=== PATIENT | female | born 1935 | race Caucasian/White ===

== ENCOUNTER 2017-04-01 11:53 | Outpatient (CLI) | payer MEDICARE ==
--- NOTE | 2017-04-01 16:34 | XRAY Report ---
THREE VIEW LEFT FOOT: 04/01/2017 CLINICAL INDICATION: Pain, edema. FINDINGS: AP, lateral, and oblique views of the left foot demonstrate severe osteoarthritis of the 1 st metatarsophalangeal joint, and mild osteoarthritis of the interphalangeal joints. Small plantar ca lcaneal spur is noted. There is no evidence of acute fracture or dislocation. IMPRESSION: SEVERE OSTEOARTHRITIS OF THE 1ST METATARSOPHALANGEAL JOINT. JOB #: [id number] EXT JOB #:[id number]
== END 2017-04-01 11:54 | disposition home or self-care (01) ==
LOC: DI 11:53
PROVIDERS: ATTEND Podiatrist
DX: M19.072 Primary osteoarthritis, left ankle and foot (principal)

== ENCOUNTER 2017-05-14 13:19 | Outpatient (CLI) | payer MEDICARE ==
--- NOTE | 2017-05-15 13:03 | Mammography Report ---
DIGITAL SCREENING MAMMOGRAM: 05/14/2017 CLINICAL INDICATION: An 81-year-old with history of bilateral breast cancer status post lumpectomies and radiation therapy for screening. COMPARISON: 04/2016, 12/2014, 09/2013, 10/2012, 10/2011, 07/2010, 07/2009 TECHNIQUE: Routine CC and MLO projections were obtained of the breasts as well as bilateral laterall y exaggerated craniocaudal views. FINDINGS: The breasts again demonstrate heterogeneously dense fibroglandular parenchyma bilaterally. Coarse and punctate, typically benign calcifications are present. Postoperative and post-treatment changes are stable. No suspicious masses, clustered microcalcifications, or regions of architectura l distortion are identified. IMPRESSION: BENIGN FINDINGS. RECOMMENDATION: Routine annual screening unless otherwise clinically indicated. BIRADS CATEGORY 2 - BENIGN FINDINGS. STANDARD QUALIFYING STATEMENTS 1. This examination was reviewed with the aid of Computer-Aided Detection (CAD). 2. A negative or benign imaging report should not delay biopsy if clinically suspicious findings are present. Consider surgical consultation if warranted. More than 5% of cancers are not identified by i maging. 3. Dense breasts may obscure an underlying neoplasm. JOB #: [id number] EXT JOB #:[id number]
== END 2017-05-14 13:20 | disposition home or self-care (01) ==
LOC: DI.N 13:19
PROVIDERS: ATTEND Internal Medicine Hematology & Oncology
DX: Z12.31 Encounter for screening mammogram for malignant neoplasm of breast (principal); Z85.3 Personal history of malignant neoplasm of breast
CPT/HCPCS: 77067

== ENCOUNTER 2017-10-13 08:00 | Outpatient (CLI) | payer MEDICARE ==
[2017-10-13 19:05] LABS: BILIRUBIN,URINE NEGATIVE (NEGATIVE); GLUCOSE, URINE (UA) NEGATIVE (NEGATIVE); KETONES,URINE (UA) NEGATIVE (NEGATIVE); LEUKOCYTE ESTERASE, URINE SMALL (NEGATIVE); NITRITE,URINE NEGATIVE (NEGATIVE); OCCULT BLOOD,URINE NEGATIVE (NEGATIVE); PROTEIN,URINE NEGATIVE (NEGATIVE); UROBILINOGEN,URINE 0.2 (NORMAL) E.U./dL (NORMAL)
[2017-10-13 19:13] LABS: BASOPHILS # (AUTO) 0.1 10^3/uL (0.0-0.1); BASOPHILS % (AUTO) 0.6 %; EOSINOPHILS # (AUTO) 0.2 10^3/uL (0.0-0.7); EOSINOPHILS % (AUTO) 1.6 %; HGB - HEMOGLOBIN 13.4 g/dL (12.0-16.0); LYMPHOCYTES % (AUTO) 9.9 %; MEAN CORPUSCULAR HEMOGLOBIN 30.8 pg (27.0-31.0); MEAN CORPUSCULAR HGB CONC 33.7 g/dL (32.0-36.0); MEAN CORPUSCULAR VOLUME 91.3 fL (81.0-99.0); MONOCYTES # (AUTO) 0.9 10^3/uL (0.0-1.0); MONOCYTES % (AUTO) 9.4 %; NEUTROPHILS # (AUTO) 7.7 10^3/uL (1.5-6.6); NEUTROPHILS % (AUTO) 78.5 %; PLT - PLATELET COUNT 325 10^3/uL (130-450); RED BLOOD COUNT 4.35 10^6/uL (4.20-5.40); RED CELL DISTRIBUTION WIDTH 12.8 % (12.0-15.0); WHITE BLOOD COUNT 9.8 x10^3/uL (4.8-10.8)
[2017-10-13 19:14] LABS: CLARITY,URINE CLEAR (CLEAR); EPITHELIAL CELLS,UR FEW Transitional /HPF (<= Few); RBC,URINE 0-5 /HPF (0-5); SQUAMOUS EPITHELIAL CELL,UR FEW Squamous (<= Few)
[2017-10-13 19:15] LABS: BACTERIA,URINE Rare /HPF (None Seen); CASTS, URINE 26-50 Hyaline Casts /LPF
[2017-10-13 19:35] LABS: ALBUMIN 3.7 g/dL (3.2-5.5); ALBUMIN/GLOBULIN RATIO 1.2 (1.0-2.2); ALKALINE PHOSPHATASE 63 IU/L (42-121); ALT ALANINE AMINOTRANSFERASE 25 IU/L (10-60); AST ASPARTATE AMINOTRANSFERASE 22 IU/L (10-42); BILIRUBIN,TOTAL < 0.2 mg/dL (0.2-1.0); BUN - BLOOD UREA NITROGEN 17 mg/dL (6-20); CALCIUM 9.9 mg/dL (8.5-10.3); CARBON DIOXIDE - CO2 25 mmol/L (21-32); CHLORIDE 100 mmol/L (101-111); CREATININE 1.1 mg/dL (0.4-1.0); GFR - MDRD 47 (>89); GLUCOSE 92 mg/dL (70-100); SODIUM 138 mmol/L (135-145); TOTAL PROTEIN 6.7 g/dL (6.7-8.2)
== END 2017-10-13 08:01 | disposition home or self-care (01) ==
LOC: LAB.WCP 08:00
PROVIDERS: ATTEND Family Medicine
DX: R60.9 Edema, unspecified (principal)
CPT/HCPCS: 36415; 80053; 81001; 85025

== ENCOUNTER 2017-12-31 07:15 | Day surgery (SDC) | payer MEDICARE ==
[~2017-12-31 07:15] MED LIST: CYCLOPENTOLATE 1% OPHTH DROPS 2 ML ONE; KETOROLAC 0.45% OPHTH DROPS ONE; PHENYLEPHRINE 2.5% OPHTH 2 ML DROPS ONE; PROPARACAINE 0.5% OPHTH DROPS 15 ML ONE
[2017-12-31] MEDS ORDERED: LACTATED RINGERS 500 ML IV ONE (07:21)
[2017-12-31] MEDS ORDERED: EPINEPHrine 1 MG/ML AMP ONE (07:27)
[2017-12-31] MEDS ORDERED: BRIMONIDINE 0.2% OPHTH DROPS 5 ML ONE (07:27)
[2017-12-31] MEDS ORDERED: TRIAMCIN/MOXIFLOX OPHTHALMIC 0.6 ML VIAL IO ONE (07:27)
[2017-12-31] MEDS ORDERED: TIMOLOL 0.5% OPHTH DROPS ONE (07:28)
[2017-12-31] MEDS ORDERED: BSS/LIDOCAINE/EPINEPHRINE 1 ML SYRINGE ONE (07:28)
[2017-12-31] MEDS ORDERED: PROPARACAINE 0.5% OPHTH DROPS 15 ML RIGHTEYE ONE ×2 (07:40→08:46)
[2017-12-31] MEDS ORDERED: PHENYLEPHRINE 2.5% OPHTH 2 ML DROPS RIGHTEYE ONE (07:40)
[2017-12-31] MEDS ORDERED: CYCLOPENTOLATE 1% OPHTH DROPS 2 ML RIGHTEYE ONE (07:40)
[2017-12-31] MEDS ORDERED: KETOROLAC 0.45% OPHTH DROPS RIGHTEYE ONE (07:40)
[2017-12-31] MEDS ORDERED: MIDAZOLAM 2 MG/2 ML VIAL IVP ONE (08:40)
[2017-12-31] MEDS ORDERED: EPINEPHrine 1 MG/ML AMP IR ONE (08:45)
[2017-12-31] MEDS ORDERED: BRIMONIDINE 0.2% OPHTH DROPS 5 ML OPTH ONE (08:45)
[2017-12-31] MEDS ORDERED: BSS/LIDOCAINE/EPINEPHRINE 1 ML SYRINGE IO ONE (08:46)
[2017-12-31] MEDS ORDERED: TIMOLOL 0.5% OPHTH DROPS OPTH ONE (08:46)
[2017-12-31] MEDS ORDERED: CHONDR SULF/HYALURONATE SYRINGE IO ONE (08:46)
[2017-12-31] MEDS ORDERED: VANCOMYCIN OPHTHALMI 8MG/0.8ML 8 MG/0.8 ML SYRINGE IO ONE (08:47)
[2017-12-31 09:00] VITALS: BP 132/53
== END 2017-12-31 07:16 | disposition home or self-care (01) ==
LOC: SDS 07:15
PROVIDERS: ATTEND Ophthalmology
PROC: 08RJ3JZ Replacement of Right Lens with Synthetic Substitute, Percutaneous Approach (ICD-10-PCS; principal; 2017-12-31 08:30)
DX: H25.811 Combined forms of age-related cataract, right eye (principal); I10 Essential (primary) hypertension
CPT/HCPCS: 66984; A9270; J3490; V2632

== ENCOUNTER 2018-02-25 07:46 | Day surgery (SDC) | payer MEDICARE ==
[~2018-02-25 07:46] MED LIST changes: +BRIMONIDINE 0.2% OPHTH DROPS 5 ML ONE; +BSS/LIDOCAINE/EPINEPHRINE 1 ML SYRINGE ONE; +EPINEPHrine 1 MG/ML AMP ONE; +TIMOLOL 0.5% OPHTH DROPS ONE; +TRIAMCIN/MOXIFLOX OPHTHALMIC 0.6 ML VIAL IO ONE; +VANCOMYCIN OPHTHALMI 8MG/0.8ML 8 MG/0.8 ML SYRINGE IO ONE
[2018-02-25] MEDS ORDERED: LACTATED RINGERS 500 ML IV ONE (07:53)
[2018-02-25] MEDS ORDERED: PHENYLEPHRINE 2.5% OPHTH 2 ML DROPS LEFTEYE ONE (08:08)
[2018-02-25] MEDS ORDERED: PROPARACAINE 0.5% OPHTH DROPS 15 ML LEFTEYE ONE ×2 (08:08→09:04)
[2018-02-25] MEDS ORDERED: CYCLOPENTOLATE 1% OPHTH DROPS 2 ML LEFTEYE ONE (08:08)
[2018-02-25] MEDS ORDERED: KETOROLAC 0.45% OPHTH DROPS LEFTEYE ONE (08:08)
[2018-02-25] MEDS ORDERED: EPINEPHrine 1 MG/ML AMP IR ONE (09:02)
[2018-02-25] MEDS ORDERED: CHONDR SULF/HYALURONATE SYRINGE IO ONE (09:02)
[2018-02-25] MEDS ORDERED: VANCOMYCIN OPHTHALMI 8MG/0.8ML 8 MG/0.8 ML SYRINGE IO ONE ×3 (09:02→09:08)
[2018-02-25] MEDS ORDERED: BRIMONIDINE 0.2% OPHTH DROPS 5 ML OPTH ONE (09:02)
[2018-02-25] MEDS ORDERED: BSS/LIDOCAINE/EPINEPHRINE 1 ML SYRINGE IO ONE (09:03)
[2018-02-25] MEDS ORDERED: TRIAMCIN/MOXIFLOX/VANCO 1 ML VIAL IO ONE (09:03)
[2018-02-25] MEDS ORDERED: TIMOLOL 0.5% OPHTH DROPS OPTH ONE (09:03)
[2018-02-25] MEDS ORDERED: MIDAZOLAM 2 MG/2 ML VIAL IVP ONE (09:50)
[2018-02-25 09:51] VITALS: BP 127/63
--- NOTE | 2018-02-25 11:08 | OPERATIVE REPORT ---
DATE OF SERVICE: 02/25/2018 Physician: Joel oRsas MD PREOPERATIVE DIAGNOSIS: Visually significant cataract, left eye. Cataract surgery was performed on the right eye on 12/31/2017. POSTOPERATIVE DIAGNOSIS: Visually significant cataract, left eye. Cataract surgery was performed on the right eye on 12/31/2017. NAME OF PROCEDURE: Phacoemulsification with posterior chamber intraocular lens implant, left eye. SURGEON: Joel Rosas MD ANESTHESIA: Monitored anesthesia care. COMPLICATIONS: None. OPERATIVE INDICATIONS: This is an 82-year-old woman with progressive vision loss in the left eye due to 2+ nuclear sclerotic, 2 to 3+ cortical and trace posterior subcapsular cataract. Best corrected visual acuity was 20/30 with glare to 20/70 in the left eye. Indications for surgery were overall de crease in vision, difficulty seeing words on the computer screen, difficulty reading; difficulty seei ng words, closed caption or game scores on TV; difficulty seeing street signs and difficulty with gla re or bright lights in any situation. She was consented at length concerning risks and benefits of c ataract surgery, after which she expressed a desire to proceed with surgery. OPERATIVE PROCEDURE: The patient was taken into OR #3 and placed under monitored anesthesia care. A surgical timeout was conducted confirming correct patient, correct procedure, and correct surgical s ite. She was given topical anesthesia, and prepped and draped in the usual sterile fashion. The eye was entered at the 6 and 3 o'clock positions. Intracameral Shugarcaine was injected into the anteri or chamber, followed by Viscoat. A continuous-tear curvilinear capsulorrhexis was performed. Nucleu s was hydrodissected and phacoemulsified. The cortex was evacuated using automated infusion and aspi ration. Provisc was injected in the capsular bag, and a 21.5 diopter intraocular lens was inserted i nto the bag. Approximately 0.8 mL of a mixture of triamcinolone, moxifloxacin, and vancomycin was in jected subconjunctivally in the superior quadrant for infection and inflammation prophylaxis. I and A, was used to evacuate the viscoelastic materials. The eye was inflated to physiologic pressure usi ng a balanced salt solution and found to be watertight. The patient was taken from the operating nicky m in good condition and given postoperative instructions. TD: 02/25/2018 09:38
== END 2018-02-25 07:47 | disposition home or self-care (01) ==
LOC: SDS 07:46
PROVIDERS: ATTEND Ophthalmology
PROC: 08RK3JZ Replacement of Left Lens with Synthetic Substitute, Percutaneous Approach (ICD-10-PCS; principal; 2018-02-25 09:00)
DX: H25.812 Combined forms of age-related cataract, left eye (principal); I10 Essential (primary) hypertension
CPT/HCPCS: 66984; A9270; J3490; V2632

== ENCOUNTER 2018-05-19 11:22 | Outpatient (CLI) | payer MEDICARE ==
--- NOTE | 2018-05-20 10:50 | Mammography Report ---
Reason: SCREENING MAMMO Procedure Date: 05/19/2018 Accession Number: [id number] / [id number] Procedure: EDWAR - Screening Mammo w/Bennett CPT Code: FULL RESULT: EXAM: Screening Mammo w/Bennett DATE: 05/19/2018 12:27 PM CLINICAL HISTORY: Routine screening with personal history of breast cancer TECHNIQUE: Bilateral CC and MLO views were obtained. COMPARISON: 05/14/2017, 05/12/2016, 01/15/2015, 10/24/2013, 11/02/2012, 11/06/2011, 02/03/2011. FINDINGS: The breast tissue is heterogeneously dense. Post therapeutic changes bilaterally are similar to previous. No new suspicious masses, clustered microcalcifications, or regions of architectural distortion are identified. IMPRESSION: Benign findings RECOMMENDATION: Routine annual screening unless otherwise clinically indicated. BIRADS CATEGORY 2: Benign findings STANDARD QUALIFYING STATEMENTS: 1. This examination was not reviewed with the aid of Computer-Aided Detection (CAD). 2. A negative or benign imaging report should not delay biopsy if clinically suspicious findings are present. Consider surgical consultation if warrented. More than 5% of cancers are not identified by imaging. 3. Dense breasts may obscure an underlying neoplasm. 4. This examination was reviewed with the aid of 3D breast imaging (tomosynthesis).
== END 2018-05-19 11:23 | disposition home or self-care (01) ==
LOC: DI 11:22
PROVIDERS: ATTEND Nurse Practitioner
DX: Z12.31 Encounter for screening mammogram for malignant neoplasm of breast (principal); Z85.3 Personal history of malignant neoplasm of breast
CPT/HCPCS: 77063; 77067

== ENCOUNTER 2019-05-24 12:21 | Outpatient (CLI) | payer MEDICARE ==
--- NOTE | 2019-05-24 17:03 | Ultrasound Report ---
Reason: LYPHEDEMA, ADENOCA BREAST Procedure Date: 05/24/2019 Accession Number: [id number] / [id number] Procedure: US - Duplex Ext Veins Left CPT Code: FULL RESULT: EXAM: LEFT LOWER EXTREMITY VENOUS ULTRASOUND EXAM DATE: 05/24/2019 01:28 PM. CLINICAL HISTORY: Breast cancer COMPARISON: None. TECHNIQUE: Real-time sonographic vascular imaging was performed by the ob gyn through the lower extremity utilizing both color-flow and Doppler spectral analysis. Multiple business office representative static images were saved for review. FINDINGS: Common Femoral Vein (CFV): Normal. CFV-GSV Junction: Normal. Profunda Femoral Vein (PFV): Normal. Femoral Vein (FV) Prox: Normal. Femoral Vein (FV) Mid: Normal. Femoral Vein (FV) Dist: Normal. Popliteal Vein: Normal. Posterior Tibial Veins: Normal. Peroneal Veins: Normal. Other: None. IMPRESSION: No evidence for deep venous thrombosis. RADIA
== END 2019-05-24 12:22 | disposition home or self-care (01) ==
LOC: DI 12:21
PROVIDERS: ATTEND Family Medicine
DX: I89.0 Lymphedema, not elsewhere classified (principal); C50.919 Malignant neoplasm of unspecified site of unspecified female breast

== ENCOUNTER 2019-06-02 11:01 | Outpatient (CLI) | payer MEDICARE ==
--- NOTE | 2019-06-03 08:15 | Mammography Report ---
Reason: SCREENING MAMMO Procedure Date: 06/02/2019 Accession Number: [id number] / [id number] Procedure: EDWAR - Screening Mammo w/Bennett CPT Code: Final Report FULL RESULT: EXAM: Screening Mammo w/Bennett DATE: 06/02/2019 12:00 PM CLINICAL HISTORY: Screening encounter. Personal history of breast cancer bilaterally status post lumpectomy bilaterally. TECHNIQUE: (B) - Bilateral CC and MLO views were obtained. COMPARISON: 05/19/2018 through 10/24/2013. PARENCHYMAL PATTERN: (D) - The breast(s) demonstrate(s) heterogeneously dense fibroglandular parenchyma. FINDINGS: Bilateral posttreatment changes are stable, typically benign. There are no suspicious masses, calcifications, or areas of distortion. IMPRESSION: Benign findings. BI-RADS category 2. RECOMMENDATION: (ANNUAL) - Recommend routine annual screening mammography. BI-RADS CATEGORY: (2) - Benign Findings. STANDARD QUALIFYING STATEMENTS: 1. This examination was not reviewed with the aid of Computer-Aided Detection (CAD). 2. A negative or benign imaging report should not preclude biopsy if clinically suspicious findings are present. 3. Dense breasts may obscure an underlying neoplasm. 4. This examination was reviewed with the aid of 3D breast imaging (tomosynthesis).
== END 2019-06-02 11:02 | disposition home or self-care (01) ==
LOC: DI 11:01
PROVIDERS: ATTEND Internal Medicine Hematology & Oncology
DX: Z12.31 Encounter for screening mammogram for malignant neoplasm of breast (principal); Z08 Encounter for follow-up examination after completed treatment for malignant neoplasm; Z85.3 Personal history of malignant neoplasm of breast
CPT/HCPCS: 77063; 77067

== ENCOUNTER 2019-07-29 08:00 | Outpatient (CLI) | payer MEDICARE ==
--- NOTE | 2019-07-29 11:49 | DEXA Report ---
Reason: BONE DISORDER Procedure Date: 07/29/2019 Accession Number: [id number] / [id number] Procedure: DEX - Dexa Spine and/or Hip CPT Code: Final Report FULL RESULT: EXAM: Dexa Spine and/or Hip DATE: 07/29/2019 8:35 AM CLINICAL HISTORY: BONE DISORDER TECHNIQUE: Dual energy x-ray absorptiometry (DXA) was performed on a [employer] System. Regions measured are the AP Spine, femoral neck, and if needed forearm. COMPARISON: 05/12/2016. In accordance with the International Society for Clinical Densitometry (ISCD) guidelines, data from previous exams may be reanalyzed using current recommendations and techniques. This is done to allow a more accurate basis for comparison with the current study. FINDINGS: The data for the lumbar spine is as follows: BMD (g/cm/cm) T-SCORE Z-SCORE REGION L1 0.864 -2.2 -0.1 L2 1.005 -1.6 0.5 L3 1.050 -1.3 0.9 L4 1.044 -1.3 0.8 TOTAL 0.995 -1.5 0.6 NOTE: All evaluable vertebrae are used for classification The data for the hip is as follows: BMD (g/cm/cm) T-SCORE Z-SCORE REGION Neck 0.877 -1.2 1.4 TOTAL 0.903 -0.8 1.6 NOTE: The femoral neck or total proximal femur, whichever is lowest, is used for classification. DXA RESULTS SUMMARY: Spine SCAN DATE AGE BMD CHANGE VS CHANGE VS PREVIOUS PREVIOUS % 07[age]29/2019 [age] 0.995 -0.027 -2.6 05/12/2016 [age] 1.022 * Denotes significant change at the 95% confidence level. Denotes dissimilar scan types or analysis methods. DXA RESULTS SUMMARY: Hip SCAN DATE AGE BMD CHANGE VS CHANGE VS PREVIOUS PREVIOUS % 07[birth year]29[birth year]2019 84.1 0.903 -0.038* -4.0* 05/12/2016 80.8 0.941 * Denotes significant change at the 95% confidence level. Denotes dissimilar scan types or analysis methods. IMPRESSION: THE WHO CLASSIFICATION BASED ON THE INTERNATIONAL REFERENCE STANDARD IS OSTEOPENIA. THE FRACTURE RISK IS INCREASED. Statistically significant interval decrease in bone density in the hip. RECOMMENDATION: Patients with diagnosis of osteoporosis or osteopenia should have regular bone mineral density assessment. For those eligible for Medicare, routine testing is allowed once every 2 years. Testing frequency can be increased for patients who have rapidly progressing disease or for those who are receiving medical therapy to restore bone mass. COMMENT: World Health Organization (WHO) definitions for osteoporosis and osteopenia: NORMAL BMD: T-score at -1.0 or higher, fracture risk is low OSTEOPENIA BMD: T-score between -1.0 and -2.5, fracture risk is increased. OSTEOPOROSIS BMD: T-score at -2.5 or lower, fracture risk is high. National Osteoporosis Foundation recommends: 1. Obtain adequate dietary calcium (at least 1200 mg per day) and vitamin D (400-800 international units per day). 2. Participate, as appropriate, in regular weightbearing and muscle-strengthening exercise. 3. Avoid tobacco use and reduce alcohol and caffeine intake. 4. For more detailed information see the website at www.NOF.org.
== END 2019-07-29 08:01 | disposition home or self-care (01) ==
LOC: DI 08:00
PROVIDERS: ATTEND Family Medicine
DX: M85.89 Other specified disorders of bone density and structure, multiple sites (principal)
CPT/HCPCS: 77080

== ENCOUNTER 2019-09-20 09:11 | Outpatient (CLI) | payer MEDICARE ==
[2019-09-20 12:17] LABS: BASOPHILS % (AUTO) 0.7 %; EOSINOPHILS # (AUTO) 0.1 10^3/uL (0.0-0.7); EOSINOPHILS % (AUTO) 2.1 %; HGB - HEMOGLOBIN 14.6 g/dL (12.0-16.0); LYMPHOCYTES # (AUTO) 1.2 10^3/uL (1.5-3.5); LYMPHOCYTES % (AUTO) 19.3 %; MEAN CORPUSCULAR HEMOGLOBIN 30.7 pg (27.0-31.0); MEAN CORPUSCULAR HGB CONC 32.2 g/dL (32.0-36.0); MEAN CORPUSCULAR VOLUME 95.6 fL (81.0-99.0); MEAN PLATELET VOLUME 10.7 fL (7.9-10.8); MONOCYTES # (AUTO) 0.5 10^3/uL (0.0-1.0); MONOCYTES % (AUTO) 8.9 %; NEUTROPHILS # (AUTO) 4.2 10^3/uL (1.5-6.6); NEUTROPHILS % (AUTO) 68.7 %; PLT - PLATELET COUNT 263 10^3/uL (130-450); RED BLOOD COUNT 4.75 10^6/uL (4.20-5.40); RED CELL DISTRIBUTION WIDTH 12.4 % (12.0-15.0); WHITE BLOOD COUNT 6.1 x10^3/uL (4.8-10.8)
[2019-09-20 12:46] LABS: ALBUMIN/GLOBULIN RATIO 1.4 (1.0-2.2); ALKALINE PHOSPHATASE 54 IU/L (42-121); ALT ALANINE AMINOTRANSFERASE 21 IU/L (10-60); AST ASPARTATE AMINOTRANSFERASE 23 IU/L (10-42); BILIRUBIN,TOTAL 0.7 mg/dL (0.2-1.0); BUN - BLOOD UREA NITROGEN 18 mg/dL (6-20); CALCIUM 9.5 mg/dL (8.5-10.3); CARBON DIOXIDE - CO2 29 mmol/L (21-32); CHLORIDE 105 mmol/L (101-111); CHOL/HDL RATIO 2.2 (<4.4); CHOLESTEROL 169 mg/dL; GFR - MDRD 53 (>89); GLUCOSE 90 mg/dL (70-100); HDL CHOLESTEROL 78 mg/dL; LDL CHOLESTEROL,CALCULATED 74 mg/dL; LDL/HDL RATIO 0.9 (<4.4); SODIUM 141 mmol/L (135-145); TOTAL PROTEIN 6.9 g/dL (6.7-8.2); VLDL CHOLESTEROL 17 mg/dL
== END 2019-09-20 23:59 | disposition home or self-care (01) ==
LOC: LAB.WCP 09:11
PROVIDERS: ATTEND Family Medicine
DX: I10 Essential (primary) hypertension (principal); E78.5 Hyperlipidemia, unspecified
CPT/HCPCS: 36415; 80053; 80061; 83721; 85025

== ENCOUNTER 2020-07-12 10:56 | Outpatient (CLI) | payer MEDICARE ==
--- NOTE | 2020-07-13 05:37 | Mammography Report ---
BILATERAL DIGITAL SCREENING MAMMOGRAM 3D/2D: 07/12/2020 CLINICAL: Routine screening. Personal history of bilateral breast cancer. Comparison is made to exams dated: 06/02/2019 mammogram, 05/19/2018 mammogram, 05/14/2017 mammogram, 05/12/2016 mammogram, 01/15/2015 mammogram, and 10/24/2013 mammogram - [facility]. T here are scattered fibroglandular elements in both breasts. There are benign vascular calcifications in both breasts. There also are benign post operative findi ngs in both breasts. No significant masses, calcifications, or other findings are seen in either breast. There has been no significant interval change. IMPRESSION: BENIGN There is no mammographic evidence of malignancy. A 1 year screening mammogram is recommended. This exam was interpreted at Station ID: [id number]. NOTE: For mammograms, a report in lay terms will be sent to the patient. Approximately 15% of breast malignancies will not be visualized mammographically. In the management of a palpable breast mass, a negative mammogram must not discourage biopsy of a clinically suspicious lesion. Electronically Signed By: Sade la/yogi:07/12/2020 11:35:05 ACR BI-RADS Category 2: Benign Finding(s) 3342F PARENCHYMAL PATTERN: (A) - The breast(s) demonstrate(s) scattered fibroglandular densities. BI-RADS CATEGORY: (2) - 2 RECOMMENDATION: (ANNUAL) - Recommend routine annual screening mammography. [id number] 1 year screening LATERALITY: (B)
== END 2020-07-12 10:57 | disposition home or self-care (01) ==
LOC: DI.N 10:56
PROVIDERS: ATTEND Internal Medicine Hematology & Oncology
DX: Z12.31 Encounter for screening mammogram for malignant neoplasm of breast (principal); Z85.3 Personal history of malignant neoplasm of breast
CPT/HCPCS: 77067

== ENCOUNTER 2021-03-19 10:37 | Outpatient (CLI) | payer MEDICARE ==
--- NOTE | 2021-03-19 13:54 | XRAY Report ---
PROCEDURE: Shoulder 2 View RT INDICATIONS: R SHOULDER PX TECHNIQUE: 2 views of the shoulder were acquired. COMPARISON: None. FINDINGS: Bones: No fractures or dislocations. No suspicious bony lesions. Visualized ribs appear intact. Mi ld acromioclavicular joint and glenohumeral joint osteoarthritis. Soft tissues: No suspicious soft tissue calcifications. 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
== END 2021-03-19 10:38 | disposition home or self-care (01) ==
LOC: DI.N 10:37
PROVIDERS: ATTEND Family Medicine
DX: M19.011 Primary osteoarthritis, right shoulder (principal); R06.9 Unspecified abnormalities of breathing; E78.5 Hyperlipidemia, unspecified
CPT/HCPCS: 36415; 80048; 80061; 81001; 83721; 85025; 85027

== ENCOUNTER 2021-03-19 10:45 | Outpatient (CLI) | payer MEDICARE ==
[2021-03-19 17:59] LABS: HCT - HEMATOCRIT 47.7 % (37.0-47.0); HGB - HEMOGLOBIN 15.1 g/dL (12.0-16.0); MEAN CORPUSCULAR HEMOGLOBIN 30.6 pg (27.0-31.0); MEAN CORPUSCULAR HGB CONC 31.7 g/dL (32.0-36.0); MEAN CORPUSCULAR VOLUME 96.8 fL (81.0-99.0); MEAN PLATELET VOLUME 10.6 fL (7.9-10.8); RED BLOOD COUNT 4.93 10^6/uL (4.20-5.40); RED CELL DISTRIBUTION WIDTH 12.7 % (12.0-15.0); WHITE BLOOD COUNT 7.2 x10^3/uL (4.8-10.8)
[2021-03-19 18:00] LABS: BILIRUBIN,URINE NEGATIVE (NEGATIVE); GLUCOSE, URINE (UA) NEGATIVE (NEGATIVE); KETONES,URINE (UA) TRACE mg/dL (NEGATIVE); LEUKOCYTE ESTERASE, URINE NEGATIVE (NEGATIVE); NITRITE,URINE NEGATIVE (NEGATIVE); OCCULT BLOOD,URINE NEGATIVE (NEGATIVE); PROTEIN,URINE NEGATIVE (NEGATIVE); UROBILINOGEN,URINE 0.2 (NORMAL) E.U./dL (NORMAL)
[2021-03-19 18:01] LABS: BACTERIA,URINE Rare /HPF (None Seen); CLARITY,URINE CLEAR (CLEAR); MUCUS,URINE Few Strands; RBC,URINE 0-5 /HPF (0-5); SQUAMOUS EPITHELIAL CELL,UR FEW Squamous (<= Few); WBC,URINE 0-3 /HPF (0-5)
[2021-03-19 18:17] LABS: BUN - BLOOD UREA NITROGEN 14 mg/dL (6-20); CALCIUM 9.5 mg/dL (8.5-10.3); CARBON DIOXIDE - CO2 29 mmol/L (21-32); CHLORIDE 100 mmol/L (101-111); CHOL/HDL RATIO 2.4 (<4.4); CHOLESTEROL 197 mg/dL; GFR - MDRD 53 (>89); GLUCOSE 93 mg/dL (70-100); HDL CHOLESTEROL 82 mg/dL; LDL CHOLESTEROL,CALCULATED 99 mg/dL; LDL/HDL RATIO 1.2 (<4.4); POTASSIUM 4.5 mmol/L (3.5-5.0); SODIUM 138 mmol/L (135-145); TRIGLYCERIDES 82 mg/dL; VLDL CHOLESTEROL 16 mg/dL
== END 2021-03-19 10:46 | disposition home or self-care (01) ==
LOC: LAB.N 10:45
PROVIDERS: ATTEND Family Medicine
DX: R60.9 Edema, unspecified (principal); E78.5 Hyperlipidemia, unspecified
CPT/HCPCS: 36415; 80048; 80061; 81001; 83721; 85025; 85027

== ENCOUNTER 2021-06-07 08:00 | Outpatient (CLI) | payer MEDICARE ==
[2021-06-07 19:02] LABS: CALCIUM 10.2 mg/dL (8.5-10.3); POTASSIUM 4.7 mmol/L (3.5-5.0)
== END 2021-06-07 23:59 | disposition home or self-care (01) ==
LOC: LAB.WCP 08:00
PROVIDERS: ATTEND Family Medicine
DX: R60.9 Edema, unspecified (principal)
CPT/HCPCS: 36415; 80048

== ENCOUNTER 2021-06-26 10:44 | Outpatient (CLI) | payer MEDICARE ==
--- NOTE | 2021-06-27 13:28 | Mammography Report ---
BILATERAL DIGITAL SCREENING MAMMOGRAM 3D/2D: 06/26/2021 CLINICAL: Routine screening. Personal history of right breast cancer. Routine screening. Personal his tory of left breast cancer. Comparison is made to exams dated: 07/12/2020 mammogram, 06/02/2019 mammogram, and 05/19/2018 mammogr am - [facility]. There are scattered fibroglandular elements in both breasts. There are benign vascular calcifications in both breasts. There also are benign post operative findi ngs in both breasts. No significant masses, calcifications, or other findings are seen in either breast. There has been no significant interval change. IMPRESSION: BENIGN There is no mammographic evidence of malignancy. A 1 year screening mammogram is recommended. This exam was interpreted at Station ID: [id number]. NOTE: For mammograms, a report in lay terms will be sent to the patient. Approximately 15% of breast malignancies will not be visualized mammographically. In the management of a palpable breast mass, a negative mammogram must not discourage biopsy of a clinically suspicious lesion. Electronically Signed By: Chance perry/yogi:06/26/2021 12:45:10 ACR BI-RADS Category 2: Benign Finding(s) 3342F PARENCHYMAL PATTERN: (A) - The breast(s) demonstrate(s) scattered fibroglandular densities. BI-RADS CATEGORY: (2) - 2 RECOMMENDATION: (ANNUAL) - Recommend routine annual screening mammography. [id number] 1 year screening LATERALITY: (B)
== END 2021-06-26 10:45 | disposition home or self-care (01) ==
LOC: DI.N 10:44
PROVIDERS: ATTEND Internal Medicine Hematology & Oncology
DX: Z12.31 Encounter for screening mammogram for malignant neoplasm of breast (principal); Z85.3 Personal history of malignant neoplasm of breast

== ENCOUNTER 2022-07-03 14:40 | Outpatient (CLI) | payer MEDICARE ==
--- NOTE | 2022-07-04 10:37 | Mammography Report ---
BILATERAL DIGITAL SCREENING MAMMOGRAM 3D/2D: 07/03/2022 CLINICAL: Routine screening. Comparison is made to exams dated: 06/26/2021 mammogram, 07/12/2020 mammogram, 06/02/2019 mammogram, 1 mammogram, 05/14/2017 mammogram, and 05/12/2016 mammogram - [facility]. There are scattered areas of fibroglandular density in both breasts (category b / 25%-50% glandular t issue). There are benign vascular calcifications in both breasts. There also are benign post operative findi ngs in both breasts. No significant masses, calcifications, or other findings are seen in either breast. There has been no significant interval change. IMPRESSION: BENIGN There is no mammographic evidence of malignancy. A 1 year screening mammogram is recommended. This exam was interpreted at Station ID: [id number]. NOTE: For mammograms, a report in lay terms will be sent to the patient. Approximately 15% of breast malignancies will not be visualized mammographically. In the management of a palpable breast mass, a negative mammogram must not discourage biopsy of a clinically suspicious lesion. Electronically Signed By: Samantha moreno/yogi:07/04/2022 08:27:03 ACR BI-RADS Category 2: Benign Finding(s) 3342F PARENCHYMAL PATTERN: (A) - The breast(s) demonstrate(s) scattered fibroglandular densities. BI-RADS CATEGORY: (2) - 2 RECOMMENDATION: (ANNUAL) - Recommend routine annual screening mammography. [id number] 1 year screening LATERALITY: (B)
== END 2022-07-03 14:41 | disposition home or self-care (01) ==
LOC: DI.N 14:40
PROVIDERS: ATTEND Internal Medicine Hematology & Oncology
DX: Z12.31 Encounter for screening mammogram for malignant neoplasm of breast (principal)

== ENCOUNTER 2022-07-08 09:35 | Outpatient (CLI) | payer MEDICARE ==
--- NOTE | 2022-07-08 17:08 | DEXA Report ---
PROCEDURE: Dexa Spine and/or Hip INDICATIONS: OSTEOPENIA TECHNIQUE: Dual energy x-ray absorptiometry (DXA) was performed on a [employer] System. Regions measur ed are the AP Spine, femoral neck, and if needed forearm. COMPARISON: 07/29/2019 FINDINGS: Lumbar Spine: Bone Mineral Density 1.002 g/cm/cm,T score -1.5, previously BMD 0.995 Left Femoral Neck: Bone Mineral Density 0.813 g/cm/cm, T score -1.6, Left Hip: Bone Mineral Density 0.908 g/cm/cm,T score -0.8, 0.903 Impression: Osteopenia with slight interval improvement Patients with diagnosis of osteoporosis or osteopenia should have regular bone mineral density assess ment. For those eligible for Medicare, routine testing is allowed once every 2 years. Testing frequ ency can be increased for patients who have rapidly progressing disease or for those who are receivin g medical therapy to restore bone mass. Reviewed by: Regan Berg MD on 07/08/2022 4:06 PM JUANCARLOS Approved by: Regan Berg MD on 07/08/2022 4:06 PM [place] Station ID: [id number]
== END 2022-07-08 09:36 | disposition home or self-care (01) ==
LOC: DI 09:35
PROVIDERS: ATTEND Nurse Practitioner Family
DX: M85.89 Other specified disorders of bone density and structure, multiple sites (principal)

== ENCOUNTER 2022-08-01 10:01 | Outpatient (CLI) | payer MEDICARE ==
[2022-08-01 12:09] LABS: BASOPHILS % (AUTO) 0.6 %; EOSINOPHILS # (AUTO) 0.1 10^3/uL (0.0-0.7); EOSINOPHILS % (AUTO) 1.7 %; HCT - HEMATOCRIT 46.5 % (37.0-47.0); HGB - HEMOGLOBIN 14.5 g/dL (12.0-16.0); LYMPHOCYTES # (AUTO) 1.4 10^3/uL (1.5-3.5); LYMPHOCYTES % (AUTO) 22.2 %; MEAN CORPUSCULAR HEMOGLOBIN 29.5 pg (27.0-31.0); MEAN CORPUSCULAR HGB CONC 31.2 g/dL (32.0-36.0); MEAN CORPUSCULAR VOLUME 94.7 fL (81.0-99.0); MEAN PLATELET VOLUME 10.3 fL (7.9-10.8); MONOCYTES # (AUTO) 0.6 10^3/uL (0.0-1.0); MONOCYTES % (AUTO) 8.7 %; NEUTROPHILS # (AUTO) 4.2 10^3/uL (1.5-6.6); NEUTROPHILS % (AUTO) 66.6 %; PLT - PLATELET COUNT 261 10^3/uL (130-450); RED BLOOD COUNT 4.91 10^6/uL (4.20-5.40); RED CELL DISTRIBUTION WIDTH 12.5 % (12.0-15.0); WHITE BLOOD COUNT 6.3 x10^3/uL (4.8-10.8)
[2022-08-01 12:30] LABS: ALBUMIN 3.9 g/dL (3.2-5.5); ALBUMIN/GLOBULIN RATIO 1.2 (1.0-2.2); ALKALINE PHOSPHATASE 59 IU/L (42-121); ALT ALANINE AMINOTRANSFERASE 23 IU/L (10-60); AST ASPARTATE AMINOTRANSFERASE 27 IU/L (10-42); BILIRUBIN,TOTAL 0.7 mg/dL (0.2-1.0); BUN - BLOOD UREA NITROGEN 17 mg/dL (6-20); CALCIUM 9.5 mg/dL (8.5-10.3); CARBON DIOXIDE - CO2 29 mmol/L (21-32); CHLORIDE 103 mmol/L (101-111); CHOL/HDL RATIO 2.5 (<4.4); CHOLESTEROL 183 mg/dL; GFR - MDRD 52 (>89); GLUCOSE 94 mg/dL (70-100); HDL CHOLESTEROL 74 mg/dL; LDL CHOLESTEROL,CALCULATED 87 mg/dL; LDL/HDL RATIO 1.2 (<4.4); POTASSIUM 4.4 mmol/L (3.5-5.0); SODIUM 140 mmol/L (135-145); TOTAL PROTEIN 7.1 g/dL (6.7-8.2); TRIGLYCERIDES 110 mg/dL; VLDL CHOLESTEROL 22 mg/dL
[2022-08-01 12:38] LABS: THYROID STIMULATING HORMONE 1.76 uIU/mL (0.34-5.60)
== END 2022-08-01 10:02 | disposition home or self-care (01) ==
LOC: LAB.N 10:01
PROVIDERS: ATTEND Nurse Practitioner Family
DX: I10 Essential (primary) hypertension (principal); E78.5 Hyperlipidemia, unspecified
CPT/HCPCS: 36415; 80053; 80061; 83721; 84443; 85025

== ENCOUNTER 2022-09-24 12:13 | Outpatient (CLI) | payer MEDICARE ==
--- NOTE | 2022-09-24 16:53 | XRAY Report ---
PROCEDURE: Hip w/Pelvis 2-3V RT INDICATIONS: PAIN IN RIGHT HIP TECHNIQUE: AP pelvis with lateral view(s) of the right hip(s). COMPARISON: None. FINDINGS: Bones: No fractures or dislocations. Pelvic ring appears intact. No suspicious bony lesions. Soft tissues: The visualized bowel gas pattern is normal. No suspicious soft tissue calcifications. IMPRESSION: No acute fracture. No osseous lesion. If symptoms and/or clinical suspicion for patholog y continue, further assessment with repeat plain films, or advanced imaging (e.g., CT, MRI, or bone s can) is recommended for further assessment. Reviewed by: Jillian Morin MD on 09/24/2022 4:52 PM PST Approved by: Jillian Morin MD on 09/24/2022 4:52 PM PST Station ID: [id number]
== END 2022-09-24 12:14 | disposition home or self-care (01) ==
LOC: DI 12:13
PROVIDERS: ATTEND Nurse Practitioner
DX: M25.551 Pain in right hip (principal)

== ENCOUNTER 2022-09-29 13:14 | Outpatient (CLI) | payer MEDICARE ==
[2022-09-29 17:41] LABS: CREATININE 1.1 mg/dL (0.4-1.0); POTASSIUM 4.8 mmol/L (3.5-5.0)
== END 2022-09-29 13:15 | disposition home or self-care (01) ==
LOC: LAB.N 13:14
PROVIDERS: ATTEND Nurse Practitioner Family
DX: I10 Essential (primary) hypertension (principal)
CPT/HCPCS: 36415; 80048

== ENCOUNTER 2023-04-14 10:39 | Outpatient (CLI) | payer MEDICARE ==
[2023-04-14 17:53] LABS: BASOPHILS % (AUTO) 0.6 %; EOSINOPHILS # (AUTO) 0.1 10^3/uL (0.0-0.7); EOSINOPHILS % (AUTO) 1.8 %; HCT - HEMATOCRIT 46.9 % (37.0-47.0); HGB - HEMOGLOBIN 14.7 g/dL (12.0-16.0); LYMPHOCYTES # (AUTO) 1.7 10^3/uL (1.5-3.5); LYMPHOCYTES % (AUTO) 24.9 %; MEAN CORPUSCULAR HGB CONC 31.3 g/dL (32.0-36.0); MEAN CORPUSCULAR VOLUME 95.7 fL (81.0-99.0); MEAN PLATELET VOLUME 10.4 fL (7.9-10.8); MONOCYTES # (AUTO) 0.7 10^3/uL (0.0-1.0); MONOCYTES % (AUTO) 10.5 %; NEUTROPHILS # (AUTO) 4.1 10^3/uL (1.5-6.6); NEUTROPHILS % (AUTO) 61.9 %; PLT - PLATELET COUNT 258 10^3/uL (130-450); RED CELL DISTRIBUTION WIDTH 12.6 % (12.0-15.0); WHITE BLOOD COUNT 6.7 x10^3/uL (4.8-10.8)
[2023-04-14 18:20] LABS: ALBUMIN 4.1 g/dL (3.2-5.5); ALBUMIN/GLOBULIN RATIO 1.5 (1.0-2.2); ALKALINE PHOSPHATASE 66 IU/L (42-121); ALT ALANINE AMINOTRANSFERASE 17 IU/L (10-60); AST ASPARTATE AMINOTRANSFERASE 23 IU/L (10-42); BILIRUBIN,TOTAL 0.5 mg/dL (0.2-1.0); BUN - BLOOD UREA NITROGEN 19 mg/dL (6-20); CALCIUM 10.6 mg/dL (8.5-10.3); CARBON DIOXIDE - CO2 32 mmol/L (21-32); CHLORIDE 103 mmol/L (101-111); CHOL/HDL RATIO 2.6 (<4.4); CHOLESTEROL 162 mg/dL; CREATININE 1.2 mg/dL (0.6-1.3); GFR - MDRD 42 (>89); GLUCOSE 88 mg/dL (74-104); HDL CHOLESTEROL 63 mg/dL; LDL CHOLESTEROL,CALCULATED 71 mg/dL; LDL/HDL RATIO 1.1 (<4.4); POTASSIUM 5.2 mmol/L (3.5-4.5); SODIUM 139 mmol/L (135-145); TOTAL PROTEIN 6.9 g/dL (6.4-8.9); TRIGLYCERIDES 139 mg/dL (48-352); VLDL CHOLESTEROL 28 mg/dL
== END 2023-04-14 10:40 | disposition home or self-care (01) ==
LOC: LAB.N 10:39
PROVIDERS: ATTEND Nurse Practitioner Family
DX: I12.9 Hypertensive chronic kidney disease with stage 1 through stage 4 chronic kidney disease, or unspecified chronic kidney disease (principal); N18.31 Chronic kidney disease, stage 3a; E78.5 Hyperlipidemia, unspecified
CPT/HCPCS: 36415; 80053; 80061; 83721; 85025

== ENCOUNTER 2023-04-30 10:50 | Outpatient (CLI) | payer MEDICARE | END 2023-04-30 23:59 | disposition short-term general hospital (02) | LOC: EMS 10:50 | DX: R29.810 Facial weakness (principal); R47.81 Slurred speech | CPT/HCPCS: A0425; A0429 ==

== ENCOUNTER 2023-06-10 10:14 | Outpatient (CLI) | payer MEDICARE | END 2023-06-10 10:15 | disposition EMS.NT | LOC: EMS 10:14 | DX: R03.0 Elevated blood-pressure reading, without diagnosis of hypertension (principal) ==

== ENCOUNTER 2023-09-14 09:57 | Outpatient (CLI) | payer MEDICARE ==
[2023-09-14 13:06] LABS: CALCIUM 10.3 mg/dL (8.5-10.3); CREATININE 1.2 mg/dL (0.6-1.3); POTASSIUM 4.5 mmol/L (3.5-4.5)
== END 2023-09-14 09:58 | disposition home or self-care (01) ==
LOC: LAB.N 09:57
PROVIDERS: ATTEND Internal Medicine Cardiovascular Disease
DX: I10 Essential (primary) hypertension (principal)
CPT/HCPCS: 36415; 80048

== ENCOUNTER 2023-12-25 10:37 | Outpatient (CLI) | payer MEDICARE ==
[2023-12-25 12:21] LABS: CALCIUM 9.9 mg/dL (8.5-10.3); CREATININE 1.3 mg/dL (0.6-1.3); POTASSIUM 5.1 mmol/L (3.5-4.5)
== END 2023-12-25 10:38 ==
LOC: LAB.N 10:37
PROVIDERS: ATTEND Internal Medicine Cardiovascular Disease
DX: I10 Essential (primary) hypertension (principal)
CPT/HCPCS: 36415; 80048

== ENCOUNTER 2024-01-14 11:34 | Outpatient (CLI) | payer MEDICARE ==
[2024-01-14 18:11] LABS: CREATININE 1.2 mg/dL (0.6-1.3); POTASSIUM 4.8 mmol/L (3.5-4.5)
== END 2024-01-14 11:35 | disposition home or self-care (01) ==
LOC: LAB.N 11:34
PROVIDERS: ATTEND Internal Medicine Cardiovascular Disease
DX: I10 Essential (primary) hypertension (principal); E87.5 Hyperkalemia
CPT/HCPCS: 36415; 80048